=== PATIENT | female | born 1960 | race Two or more races ===

== ENCOUNTER 2016-10-28 11:03 | Day surgery (SDC) | payer BC ==
[2016-10-28] MEDS ORDERED: LIDOCAINE HCL 1% 20 ML VIAL MC ONE (11:04)
[2016-10-28] MEDS ORDERED: PROPOFOL 200 MG/20 ML BOTTLE IV ONE (11:04)
[2016-10-28] MEDS ORDERED: IV LACTATED RINGERS SOLUTION 1,000 ML BAG IV ONE (11:04)
== END 2016-10-28 15:00 | disposition home or self-care (01) ==
LOC: DS 11:03
PROVIDERS: ATTEND Internal Medicine Gastroenterology
DX: K59.09 Other constipation (principal); K64.8 Other hemorrhoids; E78.00 Pure hypercholesterolemia, unspecified; Z90.710 Acquired absence of both cervix and uterus; Z98.890 Other specified postprocedural states
CPT/HCPCS: A4217; A4663; J3490; J7120